=== PATIENT | female | born 1960 | race Asian ===

== ENCOUNTER 2021-05-12 14:03 | Emergency (ER) | payer MEDICARE, OTHER ==
[~2021-05-12] VITALS: Ht 142.2 cm; Wt 63.2 kg
[2021-05-12] MEDS ORDERED: proparacaine 0.5% ophthalmic drops 15ml EACHEYE ONE (14:40)
[2021-05-12] MEDS ORDERED: valacyclovir 500mg tablet PO ONE (14:40)
[2021-05-12] MEDS ORDERED: acetaminophen 325mg tablet PO ONE (14:40)
[2021-05-12] MEDS ORDERED: ibuprofen tablet 400 MG TABLET PO ONE (14:40)
[2021-05-12] MEDS ORDERED: ibuprofen 200mg tablet PO ONE (15:00)
[2021-05-12] MEDS ORDERED: VALA100031 PO (16:00)
[2021-05-12] MEDS ORDERED: KETO10TA2 PO (16:00)
[2021-05-12] MEDS ORDERED: CYCL-1 PO (16:00)
[2021-05-12 16:33] VITALS: BP 144/107
== END 2021-05-12 16:36 | disposition home or self-care (01) ==
LOC: ER 14:05
DX: M54.2 Cervicalgia (principal); M25.511 Pain in right shoulder; R51.9 Headache, unspecified; R42 Dizziness and giddiness; Z79.2 Long term (current) use of antibiotics; Z79.899 Other long term (current) drug therapy
CPT/HCPCS: 20552; 36415; 85651; 99284

== ENCOUNTER 2022-01-31 14:00 | Emergency (ER) | payer MEDICARE, OTHER ==
[~2022-01-31] VITALS: Ht 149.9 cm; Wt 60.0 kg
[~2022-01-31 14:00] MED LIST: CYCL-1 PO; KETO10TA2 PO; VALA100031 PO
[2022-01-31 14:07] VITALS: BP 186/99
[2022-01-31] MEDS ORDERED: CYCL-1 PO (14:33)
[2022-01-31] MEDS ORDERED: cyclobenzaprine 10mg tablet PO ONE (14:35)
[2022-01-31] MEDS ORDERED: HYDROcodone/acetaminophen 5mg/325mg tablet PO ONE (14:35)
== END 2022-01-31 15:34 | disposition home or self-care (01) ==
LOC: ER 14:01
DX: S16.1XXA Strain of muscle, fascia and tendon at neck level, initial encounter (principal); I10 Essential (primary) hypertension; G89.29 Other chronic pain; Z79.899 Other long term (current) drug therapy; Z79.2 Long term (current) use of antibiotics; X58.XXXA Exposure to other specified factors, initial encounter; Y93.89 Activity, other specified; Y92.89 Other specified places as the place of occurrence of the external cause; Y99.8 Other external cause status
CPT/HCPCS: 20552; 99283; 99284

== ENCOUNTER 2022-03-08 03:17 | Emergency (ER) | payer MEDICARE, OTHER ==
[~2022-03-08] VITALS: Ht 147.3 cm; Wt 61.4 kg
--- NOTE | 2022-03-08 06:19 | NUR ---
Awaiting for patient to be seen by ed md.
[2022-03-08] MEDS ORDERED: ketorolac tromethamine 15mg/ml inj. IV ONE (06:30)
[2022-03-08] MEDS ORDERED: metoclopramide 5 mg/ml inj IV ONE (06:30)
[2022-03-08] MEDS ORDERED: LIDOcaine 1% 30ml preserv. free vial SQ STA (08:20)
[2022-03-08] MEDS ORDERED: cyclobenzaprine 10mg tablet PO ONE (08:20)
[2022-03-08] MEDS ORDERED: diphenhydrAMINE 50 mg/ml inj IV ONE ×2 (08:20→08:40)
[2022-03-08 08:21] VITALS: BP 172/104
[2022-03-08] MEDS ORDERED: MELO7.5T12 PO (08:39)
[2022-03-08] MEDS ORDERED: CYCL-1 PO (08:40)
[2022-03-08] MEDS ORDERED: FAMO40TA58 PO (08:51)
== END 2022-03-08 09:01 | disposition home or self-care (01) ==
LOC: ER 03:17
DX: G44.209 Tension-type headache, unspecified, not intractable (principal); R42 Dizziness and giddiness; M54.2 Cervicalgia; I10 Essential (primary) hypertension; G89.29 Other chronic pain; Z79.899 Other long term (current) drug therapy
CPT/HCPCS: 96374; 96375; 99284; J1885; J2765